=== PATIENT | male | born 1970 | race Caucasian/White ===

== ENCOUNTER → 2016-04-13 | Outpatient (CLI) | payer BC ==
[~2016-04-13] MED LIST: CETI10TA84 PO; MULT1PAK PO
--- NOTE | 2016-04-13 14:17 | DIAGNOSTIC IMAGING REPORT ---
CHEST 2 VIEWS ROUTINE CLINICAL HISTORY: R05 cough. Dyspnea. COMPARISON STUDY: 07/16/2015 FINDINGS: Interstitial infiltrate medial aspect left lower lobe. Lungs otherwise are clear. Diaphragms smooth. Pulmonary apices are clear. IMPRESSION: Interstitial infiltrate medial aspect left lower lobe. Electronically signed by: Jose Aguirre M.D. 04/13/2016 2:16 PM Dictated Date/Time: 04/13/2016 2:15 PM
== END | disposition home or self-care (01) ==
LOC: C.RAD1850 14:04
PROVIDERS: ATTEND Family Medicine
DX: R05 Cough (principal)

== ENCOUNTER → 2016-04-27 | Outpatient (CLI) | payer BC ==
--- NOTE | 2016-04-28 08:38 | PULMONARY FUNCTION TEST ---
INTERPRETATION: The spirometry reveals very mild obstruction, especially at lower lung volumes with no change in the airflow with the use of albuterol.
== END | disposition home or self-care (01) ==
LOC: C.RC 13:51
PROVIDERS: ATTEND Family Medicine
DX: R05 Cough (principal)

== ENCOUNTER → 2016-06-16 | Outpatient (CLI) | payer BC ==
--- NOTE | 2016-06-17 08:56 | DIAGNOSTIC IMAGING REPORT ---
CHEST 2 VIEWS ROUTINE CLINICAL HISTORY: J30.9 Allergic [id number] QulbrN44.9 [id number] dyspnea COMPARISON STUDY: 04/13/2016 FINDINGS: Lungs are now considered clear. Diaphragms smooth. No evidence for cardiac enlargement. Left lower lobe infiltrate has resolved. IMPRESSION: Lungs are now clear. Electronically signed by: Jose Aguirre M.D. 06/16/2016 10:28 AM Dictated Date/Time: 06/16/2016 10:28 AM
== END | disposition home or self-care (01) ==
LOC: C.RAD1850 10:16
PROVIDERS: ATTEND Internal Medicine Pulmonary Disease
DX: J30.9 Allergic rhinitis, unspecified (principal); J18.9 Pneumonia, unspecified organism; R05 Cough

== ENCOUNTER → 2017-02-14 | Outpatient (CLI) | payer BC ==
--- NOTE | 2017-02-14 16:10 | DIAGNOSTIC IMAGING REPORT ---
CHEST 2 VIEWS ROUTINE CLINICAL HISTORY: Atypical chest pain and bodyaches. COMPARISON STUDY: 06/16/2016 FINDINGS: The cardiac and mediastinal contours are normal. There is no evidence of focal pulmonary consolidation. There is no evidence of failure. No pleural effusions are visualized.[ IMPRESSION: No active disease in the chest. Electronically signed by: Kevin Morin M.D. 02/14/2017 4:09 PM Dictated Date/Time: 02/14/2017 4:09 PM
== END | disposition home or self-care (01) ==
LOC: C.RAD1850 15:43
PROVIDERS: ATTEND Family Medicine
DX: R52 Pain, unspecified (principal)

== ENCOUNTER → 2017-02-19 | Outpatient (CLI) | payer BC ==
[2017-02-19 10:28] LABS: BASO % 0.5 %; BASO ABS # 0.06 K/uL (0-0.2); COMPLETE YES; EOS % 3.4 %; HEMATOCRIT 42.3 % (42-52); IG% 0.2 %; LYMPH % 12.5 %; MEAN CELL VOLUME 86.7 fL (80-100); MEAN CORPUSCULAR HEMOGLOBIN 28.5 pg (25-34); MEAN CORPUSCULAR HGB CONC 32.9 g/dl (32-36); MEAN PLATELET VOLUME 8.9 fL (7.4-10.4); MONO % 4.6 %; NEUT % 78.8 %; PLATELET COUNT 302 K/uL (130-400); RED BLOOD COUNT 4.88 M/uL (4.7-6.1); WHITE BLOOD COUNT 12.82 K/uL (4.8-10.8)
== END | disposition home or self-care (01) ==
LOC: C.LAB 10:01
PROVIDERS: ATTEND Student in an Organized Health Care Education/Training Program
DX: D72.829 Elevated white blood cell count, unspecified (principal); R69 Illness, unspecified